=== PATIENT | male | born 1960 | race Caucasian/White ===

== ENCOUNTER → 2017-05-20 | Outpatient (CLI) | payer OTHER ==
[2017-05-20 13:20] LABS: ALT (SGPT) 38 U/L (16-63); AST (SGOT) 29 U/L (15-37)
== END | disposition home or self-care (01) ==
LOC: LAB 12:13
PROVIDERS: ATTEND Internal Medicine Cardiovascular Disease
DX: E78.5 Hyperlipidemia, unspecified (principal)
CPT/HCPCS: 36415; 80061; 84450; 84460

== ENCOUNTER 2019-06-12 12:08 | Emergency (ER) | payer MEDICAID, OTHER ==
[2019-06-12] MEDS ORDERED: HEPARIN 25,000UTS/500ML PREMIX 500 ML IV PRN ×2 (12:17→12:45)
[2019-06-12] MEDS ORDERED: NITROGLYCERIN SUBLINGUAL 0.4 MG BOTTLE OF 25. SL PRN (12:30)
[2019-06-12] MEDS ORDERED: ASPIRIN 81 MG TAB.CHEW PO ONE (12:30)
[2019-06-12] MEDS ORDERED: HEPARIN for IV BOLUS 10,000 UNIT/10 ML VIAL. IV ONE (12:30)
--- NOTE | 2019-06-12 12:30 | PHYS DOC ---
Adult General Chief Complaint Chief Complaint: CHEST PAIN HPI HPI Patient is a 58-year-old male with a history of coronary artery disease who presents with a 30 minute history of substernal chest discomfort. He denies any radiation. He has had some shortness of breath and nausea but no diaphoresis. He states this is very similar to the chest pain he had 9 years ago when he had a heart attack with stent placement.[] Review of Systems Review of Systems Constitutional: Denies fever or chills [] Eyes: Denies change in visual acuity, redness, or eye pain [] HENT: Denies nasal congestion or sore throat [] Respiratory: Denies cough or shortness of breath [] Cardiovascular: No additional information not addressed in HPI [] GI: Denies abdominal pain, nausea, vomiting, bloody stools or diarrhea [] : Denies dysuria or hematuria [] Musculoskeletal: Denies back pain or joint pain [] Integument: Denies rash or skin lesions [] Neurologic: Denies headache, focal weakness or sensory changes [] Endocrine: Denies polyuria or polydipsia [] All other systems were reviewed and found to be within normal limits, except as documented in this note. Current Medications Current Medications Current Medications Medications (Trade) Dose Ordered Sig/Dann Start Time Stop Time Status Last Admin Dose Admin Aspirin (Children'S Aspirin) 324 mg 1X ONCE 06/12/19 12:30 06/12/19 12:31 UNV 06/12/19 12:20 324 MG Fentanyl Citrate (Fentanyl 2ml Vial) 50 mcg PRN Q15MIN PRN 06/12/19 12:30 06/13/19 12:29 UNV Heparin Sodium (Porcine) (Heparin Sodium) 4,000 unit 1X ONCE 06/12/19 12:30 06/12/19 12:31 UNV Heparin Sodium/ Dextrose 500 ml @ 0 mls/hr CONT STAT 06/12/19 12:17 06/12/19 12:18 UNV Nitroglycerin (Nitrostat) 0.4 mg PRN Q5MIN PRN 06/12/19 12:30 06/13/19 12:29 UNV Allergies Allergies Allergies Coded Allergies Type Severity Reaction Last Updated Verified No Known Drug Allergies 06/12/19 No Physical Exam Physical Exam Constitutional: Well developed, well nourished, moderate distress, non-toxic appearance. [] HENT: Normocephalic, atraumatic, bilateral external ears normal, oropharynx moist, no oral exudates, nose normal. [] Eyes: PERRLA, EOMI, conjunctiva normal, no discharge. [] Neck: Normal range of motion, no tenderness, supple, no stridor. [] Cardiovascular:Heart rate regular rhythm, no murmur [] Lungs & Thorax: Bilateral breath sounds clear to auscultation [] Abdomen: Bowel sounds normal, soft, no tenderness, no masses, no pulsatile masses. [] Skin: Warm, dry, no erythema, no rash. [] Back: No tenderness, no CVA tenderness. [] Extremities: No tenderness, no cyanosis, no clubbing, ROM intact, no edema. [] Neurologic: Alert and oriented X 3, normal motor function, normal sensory function, no focal deficits noted. [] Psychologic: Affect normal, judgement normal, mood normal. [] EKG EKG EKG: Normal sinus rhythm rate of [address] elevation in the inferior leads consistent with an ST elevation myocardial infarction[] Radiology/Procedures Radiology/Procedures [] Course & Med Decision Making Course & Med Decision Making Pertinent Labs and Imaging studies reviewed. (See chart for details) [ED course: Evaluation reveals a 58-year-old male who is having an inferior ST elevation myocardial infarction. Immediately after his arrival to the room I reviewed the EKG and made a call to [facility] to alert them of an incoming ST elevation myocardial infarction. Patient was given aspirin 324 mg a heparin bolus of 4000 units and started on a heparin drip. The patient was also given sublingual nitroglycerin and fentanyl as needed for his chest discomfort. CRITICAL CARE: Time spent was 30 minutes. This includes medical management, evaluation, reevaluation, discussion with consultants and family. Critical Care does NOT include time spent on separately billed procedures. ] Dragon Disclaimer Dragon Disclaimer This electronic medical record was generated, in whole or in part, using a voice recognition dictation system. Departure Departure: Impression: Primary Impression: STEMI (ST elevation myocardial infarction) Disposition: XFER SHT-TRM HOSP Condition: CRITICAL Referrals: SLY JACOBS I (PCP) Problem Qualifiers Primary Impression: STEMI (ST elevation myocardial infarction) Involved coronary artery: right coronary artery Qualified Codes: I21.11 - ST elevation (STEMI) myocardial infarction involving right coronary artery RENATE MORRIS DO Jun 12, 2019 12:30
[2019-06-12 12:31] LABS: BASO % 1 % (0-3); EOS # 0.2 x10^3/uL (0.0-0.7); EOS % 3 % (0-3); HEMATOCRIT 45.1 % (39.0-53.0); HEMOGLOBIN 15.3 g/dL (13.0-17.5); LYMPH # 2.2 x10^3/uL (1.0-4.8); LYMPH % 26 % (24-48); MEAN CORPUSCULAR HEMOGLOBIN 31 pg (25-35); MEAN CORPUSCULAR HGB CONC 34 g/dL (31-37); MEAN CORPUSCULAR VOLUME 90 fL (79-100); MONO # 0.8 x10^3/uL (0.0-1.1); MONO % 9 % (0-9); NEUT # 5.1 x10^3uL (1.8-7.7); NEUT % 62 % (31-73); PLATELET COUNT 242 x10^3/uL (140-400); RED BLOOD COUNT 5.03 x10^6/uL (4.30-5.70); RED CELL DISTRIBUTION WIDTH 12.7 % (11.5-14.5); WHITE BLOOD COUNT 8.3 x10^3/uL (4.0-11.0)
[2019-06-12 12:42] LABS: ALBUMIN 4.1 g/dL (3.4-5.0); ALBUMIN/GLOBULIN RATIO 1.2 (1.0-1.7); CALCIUM 9.2 mg/dL (8.5-10.1); CREATININE 1.3 mg/dL (0.7-1.3); GFR 56.7; POTASSIUM 3.9 mmol/L (3.5-5.1); TOTAL BILIRUBIN 0.6 mg/dL (0.2-1.0); TOTAL PROTEIN 7.6 g/dL (6.4-8.2)
[2019-06-12 12:58] VITALS: BP 184/71
--- NOTE | 2019-06-13 14:48 | EKG ---
[address] [address] Test Date: 2019-06-12 Test Time: 12:12:32 Pat Name: MARTIN YIN Department: Room: Gender: M [employer]: : 1960 Requested By: RENATE MORRIS Order Number: [id number] Reading MD: Measurements Intervals [place] Rate: 63 P: 39 MO: 176 QRS: 43 QRSD: 92 T: 76 QT: 386 QTc: 398 Interpretive Statements SINUS RHYTHM QRS(T) CONTOUR ABNORMALITY CONSIDER ANTEROLATERAL INFARCT POSSIBLY ABNORMAL ECG RI6.01 No previous ECG available for comparison
== END 2019-06-12 12:40 | disposition short-term general hospital (02) ==
LOC: ER 12:08
DX: I21.11 ST elevation (STEMI) myocardial infarction involving right coronary artery (principal)
CPT/HCPCS: 36415; 80053; 84484; 85025; 85610; 93005; 96374; 96375; 99291; J1644; J3010